=== PATIENT | female | born 1985 | race African-American/Black ===

== ENCOUNTER 2016-12-29 20:07 | Emergency (ER) | payer SELFPAY ==
[2016-12-29 20:58] LABS: Bilirubin Negative (Negative); Blood, Urine Negative (Negative); Glucose, Urine (Dipstick) Negative (Negative); Ketone, Urine Negative (Negative); Nitrite Positive (Negative); Protein, Urine (Dipstick) Negative (Neg-Trace)
[2016-12-29 21:03] LABS: Bacteria/HPF 4+ HPF (None Seen); Hyaline Casts/LPF 0-3 HYALINE CAST LPF (0-3 Hyaline); RBC/HPF 0-3 HPF (0-3); Squamous Epithelial 0-3 HPF (0-3)
== END 2016-12-29 21:49 | disposition home or self-care (01) ==
LOC: ERS 20:07
DX: N39.0 Urinary tract infection, site not specified (principal); H92.03 Otalgia, bilateral
CPT/HCPCS: 81003; 81015; 99283

== ENCOUNTER 2018-03-31 00:22 | Day surgery (SDC) | payer BC, SELFPAY ==
[2018-03-31 01:01] LABS: #Basophils 0.2 thou/uL (0.0-0.2); #Lymphocytes 2.8 thou/uL (1.20-3.40); #Monocytes 0.8 thou/uL (0.11-0.59); #Neutrophils 4.9 thou/uL (1.40-6.50); %Basophils 1.9 % (0.0-1.0); %Eosinophils 0.2 % (0.0-10.0); %Lymphocytes 31.8 % (21.0-51.0); %Monocytes 9.2 % (0.0-10.0); %Neutrophils 56.9 % (42.0-75.0); Hemoglobin 11.6 g/dL (12.0-16.0); Mean Corpuscular HGB CONC 33.6 g/dL (32.0-36.0); Mean Platelet Volume 7.7 fL (7.4-10.4); Platelet Count 342 thou/uL (130-400); RBC Distribution Width 14.4 % (11.5-14.5); Red Blood Cell (RBC) Count 3.86 mill/uL (4.20-5.40); White Blood Cell (WBC) Count 8.7 thou/uL (4.8-10.8)
[2018-03-31 01:17] LABS: ALT (SGPT) 16 U/L (8-55); AST (SGOT) 14 U/L (5-34); Albumin 3.9 g/dL (3.5-5.0); Alkaline Phosphatase 82 U/L (40-150); Anion Gap 11 mmol/L (10-20); BUN (Urea Nitrogen) 7 mg/dL (7.0-18.7); Bilirubin, Total 0.2 mg/dL (0.2-1.2); Calc. Creatinine Clearance 0 mL/min (70-130); Calcium 9.4 mg/dL (7.8-10.44); Carbon Dioxide 27 mmol/L (22-29); Chloride 101 mmol/L (98-107); Estimated GFR-MDRD Greater than 90; Globulin 4.2 g/dL (2.4-3.5); Glucose 95 mg/dL (70-105); Lipase 31 U/L (8-78); Potassium 3.7 mmol/L (3.5-5.1); Protein, Total 8.1 g/dL (6.0-8.3); Sodium 135 mmol/L (136-145)
[2018-03-31] MEDS ORDERED: Ondansetron ODT 4 MG TAB ONE (03:24)
[2018-03-31] MEDS ORDERED: Morphine 4 MG/ML VIAL ONE (03:58)
[2018-03-31] MEDS ORDERED: Ketorolac Tromethamine 30 MG/ML VIAL ONE (03:58)
[2018-03-31] MEDS ORDERED: Acetaminophen 500 MG TAB ONE (03:58)
[2018-03-31 04:39] LABS: Bilirubin Negative (Negative); Blood, Urine Negative (Negative); Clarity CLEAR (Clear); Glucose, Urine (Dipstick) Negative (Negative); Leukocyte Negative (Negative); Nitrite Negative (Negative); Protein, Urine (Dipstick) Negative (Neg-Trace); Specific Gravity, Urine 1.011 (1.002-1.036); Urobilinogen 0.2 mg/dL (0.2-1.0)
[2018-03-31 04:45] LABS: Pregnancy Test - Urine (BHCG) Negative (Negative); Pregu Control Background? CLEAR/WHITE (CLR/WHITE); Pregu Control Bar Appear? YES (CONTROL BAR); Specific Gravity 1.011 (1.002-1.036)
[2018-03-31] MEDS ORDERED: Piperacillin/Tazobactam 3.375 GM VIAL ONE (06:42)
[2018-03-31] MEDS ORDERED: Morphine 2 MG/ML SYRINGE ONE ×2 (07:50→12:03)
--- NOTE | 2018-03-31 08:27 | CT ---
PRELIMINARY REPORT/[facility]/EMERGENTY AFTER-HOURS PROCEDURE Addendum created by Gregory Rainey MD on 03/31/2018 6:40 AM Central Time ([place] & [place]) THIS REPORT CONTAINS FINDINGS THAT MAY BE CRITICAL TO PATIENT CARE. The findings were verbally commun icated via telephone conference with RE CHACKO at 6:40 AM CROP FARM HELPER on 03/31/2018. The findings were a cknowledged and understood. Initial Report created on 03/31/2018 6:33 AM Central Time ([place] & [place]) CT Abdomen and Pelvis With Contrast EXAM DATE/TIME: 03/31/2018 5:05 AM CLINICAL HISTORY: 33 years old, female; Pain; Abdominal pain; Generalized; Patient HX: Intermittent abd pain x 2 days n ow constant. No history of prior pain. Denies fevers. Denies n/v/d. TECHNIQUE: Axial computed tomography images of the abdomen and pelvis with intravenous contrast. Coronal reforma tted images were created and reviewed. COMPARISON: No relevant prior studies available. FINDINGS: Lower thorax: There is subpleural atelectasis of the dependent portions of the lungs. ABDOMEN: Liver: There are no focal liver lesions identified. Gallbladder and bile ducts: The gallbladder is normal. There is no evidence of biliary ductal dilatio n. Pancreas: The pancreas appears normal. No ductal dilatation. Spleen: The spleen is normal. Adrenals: The adrenal glands are normal. Kidneys and ureters: The kidneys appear normal. No hydronephrosis. Stomach and bowel: The stomach is normal. Appendix: There is dilatation of the appendix up to 9 mm with questionable periappendiceal inflammato ry stranding. PELVIS: Bladder: Unremarkable as visualized. Reproductive: There is fluid within the endometrial canal/lower uterine segment, nonspecific. ABDOMEN and PELVIS: Intraperitoneal space: Normal. No free air. No significant fluid collection. Bones/joints: No acute fracture. No dislocation. Soft tissues: Unremarkable. Vasculature: Normal. No abdominal aortic aneurysm. Lymph nodes: Normal. No enlarged lymph nodes. IMPRESSION: There is dilatation of the appendix up to 9 mm with questionable periappendiceal inflammatory strandi ng. Correlate for possible acute appendicitis. Thank you for allowing us to participate in the care of your patient. Dictated and Authenticated by: Gregory Rainey MD 03/31/2018 6:33 AM Central Time ([place] & [place]) FINAL EXAM CT ABDOMEN AND PELVIS WITH CONTRAST: FINDINGS: I agree with the findings and impression given in the preliminary report by LI. Findings are likely secondary to early acute appendicitis. POS: [facility]
--- NOTE | 2018-03-31 08:46 | HP ---
HISTORY OF PRESENT ILLNESS: Leyda Beavers is a 33-year-old black female presenting with a 36-hour history of lower close to midline right lower quadrant pain, nausea without vomiting, without fever, associated with anorexia, who presents to the emergency room with slightly elevated white count and a CAT scan confirmed a physical exam and historical evidence of appendicitis. ALLERGIES: NONE. SOCIAL HISTORY: Tobacco, none. Alcohol socially, rarely. MEDICATIONS: None routinely. PAST SURGICAL HISTORY: C-sections with bladder repair during the . PAST MEDICAL HISTORY: Noncontributory. REVIEW OF SYSTEMS: Ten-point noncontributory. FAMILY HISTORY: Noncontributory. PHYSICAL EXAMINATION: VITAL SIGNS: Blood pressure 129/72, heart rate 76, and respiratory rate 18. HEAD, EARS, EYES, NOSE, AND THROAT: Unremarkable. LUNGS: Clear to auscultation. HEART: Regular rate and rhythm without murmur or gallop. ABDOMEN: Soft. Tenderness in the right lower quadrant with guarding. EXTREMITIES: Unremarkable. No ankle edema. NEUROLOGICAL: Intact. No focal deficit. Sclerae are nonicteric. SKIN: Nonjaundiced. Skin, normal turgor. ASSESSMENT AND PLAN: Acute appendicitis. We recommend laparoscopic video appendectomy. Risks of infection, bleeding, visceral injury, open procedure were discussed. Questions answered. Job ID: [id number]
[2018-03-31] MEDS ORDERED: Scopolamine 1.5 mg/72 hour Patch ONE (10:07)
[2018-03-31] MEDS ORDERED: Piperacillin/Tazobactam 3.375 GM in Sodium Chloride 0.9% 100 ML IVPB ONE (12:30)
[2018-03-31] MEDS ORDERED: Bupivacaine HCl 0.5%/Epinephrine 1:200,000/PF 30 ml Vial ONE (12:53)
[2018-03-31] MEDS ORDERED: Midazolam HCl 2 mg/2 ml Vial ONE (12:59)
[2018-03-31] MEDS ORDERED: Fentanyl 100 MCG/2 ML VIAL ONE ×3 (12:59→15:44)
[2018-03-31] MEDS ORDERED: SUGAMMADEX SODIUM 200 MG/2 ML VIAL ONE (14:10)
[2018-03-31] MEDS ORDERED: Ondansetron PF 4 MG/2 ML Vial ONE (14:34)
[2018-03-31] MEDS ORDERED: Dexamethasone 20 MG/5 ML VIAL ONE (14:34)
[2018-03-31] MEDS ORDERED: Lidocaine 1% PF 5 ML VIAL ONE (14:34)
[2018-03-31] MEDS ORDERED: PROPOFOL 200 MG/20 ML VIAL ONE (14:34)
[2018-03-31] MEDS ORDERED: Glycopyrrolate 0.2 MG/ML 5 ML SYRINGE ONE (14:34)
[2018-03-31] MEDS ORDERED: HYDROcodone/Acetaminophen 5/325 mg Tablet ONE (17:29)
--- NOTE | 2018-03-31 20:42 | OP ---
DATE OF PROCEDURE: 03/31/2018 PREOPERATIVE DIAGNOSIS: Acute appendicitis. POSTOPERATIVE DIAGNOSIS: Acute appendicitis. PROCEDURE PERFORMED: Laparoscopic video appendectomy. ANESTHESIA: General, local with 0.5% Marcaine with epinephrine of 30 mL. DESCRIPTION OF PROCEDURE: The patient was taken to the operating room, where under general anesthesia, Wellington catheter was placed at the beginning of the procedure and removed at the end. Abdomen was clipped of hair, prepared with ChloraPrep, and draped in routine fashion. Local anesthetic was infiltrated in the skin and subcutaneous tissue about all port sites. An infraumbilical incision was made. Pneumoperitoneum to 15 mmHg was obtained with a Veress needle, replaced with a 5 port and the laparoscope was inserted. Right lateral subcostal incision was made and 5 port placed. Suprapubic incision was made through an old Pfannenstiel incision and under laparoscopic visualization directed to the patient's right and cephalad avoiding the uterus adherent to the anterior abdominal wall. Appendix identified. Mesoappendix was taken down with the LigaSure. The stump of the appendix divided with Endo-AURELIANO blue load stapler. Stapled cecal stump was secured and placed in Endobag, removed, submitted to Pathology. Good hemostasis ensured with cautery. Supraumbilical fascia was approximated with 0 Vicryl GraNee needle. All irrigant and pneumoperitoneum evacuated. All instruments were removed. All skin incisions were approximated with interrupted subdermal 4-0 Monocryl and [place] glue applied. Job ID: [id number]
== END 2018-03-31 19:59 | disposition home or self-care (01) ==
LOC: ERS 00:22
PROVIDERS: ATTEND Specialist
PROC: 0DTJ4ZZ Resection of Appendix, Percutaneous Endoscopic Approach (ICD-10-PCS; principal; 2018-03-31)
DX: K35.80 Unspecified acute appendicitis (principal)
CPT/HCPCS: 36415; 74177; 80053; 81003; 81025; 83690; 85025; 88304; 96374; J0131; J0670; J1100; J1885; J2001; J2250; J2270; J2405; J2543; J2704; J3010; J7050; Q0162

== ENCOUNTER 2018-11-13 21:52 | Emergency (ER) | payer BC ==
[2018-11-13 22:40] LABS: Bilirubin Negative (Negative); Blood, Urine Negative (Negative); Clarity Clear (Clear); Glucose, Urine (Dipstick) Normal (Negative); Leukocyte Negative Leu/uL (Negative); Nitrite Negative (Negative); Protein, Urine (Dipstick) Negative (Neg-Trace); Urobilinogen Normal mg/dL (Less than 2)
[2018-11-13 22:41] LABS: Pregnancy Test - Urine (BHCG) Negative (Negative); Pregu Control Background? CLEAR/WHITE (CLR/WHITE); Pregu Control Bar Appear? YES (CONTROL BAR); Specific Gravity 1.021 (1.002-1.036)
[2018-11-13 22:44] LABS: #Lymphocytes 2.8 thou/uL (1.20-3.40); #Monocytes 0.7 thou/uL (0.11-0.59); %Basophils 0.5 % (0.0-1.0); %Eosinophils 0.5 % (0.0-10.0); %Lymphocytes 36.7 % (21.0-51.0); %Monocytes 9.7 % (0.0-10.0); %Neutrophils 52.5 % (42.0-75.0); Hemoglobin 11.6 g/dL (12.0-16.0); Mean Corpuscular Hemoglobin 28.9 pg (27.0-31.0); Mean Corpuscular Volume 87.5 fL (78.0-98.0); Mean Platelet Volume 7.3 fL (7.4-10.4); Platelet Count 396 thou/uL (130-400); RBC Distribution Width 14.4 % (11.5-14.5); Red Blood Cell (RBC) Count 4.01 mill/uL (4.20-5.40); White Blood Cell (WBC) Count 7.6 thou/uL (4.8-10.8)
[2018-11-13 23:03] LABS: ALT (SGPT) 12 U/L (8-55); AST (SGOT) 13 U/L (5-34); Albumin 4.1 g/dL (3.5-5.0); Alkaline Phosphatase 82 U/L (40-150); Anion Gap 12 mmol/L (10-20); BUN (Urea Nitrogen) 7 mg/dL (7.0-18.7); Bilirubin, Total 0.2 mg/dL (0.2-1.2); Calc. Creatinine Clearance 0 mL/min (70-130); Calcium 9.5 mg/dL (7.8-10.44); Carbon Dioxide 28 mmol/L (22-29); Chloride 102 mmol/L (98-107); Estimated GFR-MDRD Greater than 90; Globulin 4.1 g/dL (2.4-3.5); Glucose 77 mg/dL (70-105); Potassium 3.2 mmol/L (3.5-5.1); Protein, Total 8.2 g/dL (6.0-8.3); Sodium 139 mmol/L (136-145)
[2018-11-14] MEDS ORDERED: Ketorolac Tromethamine 30 MG/ML VIAL ONE (00:32)
[2018-11-14] MEDS ORDERED: Metoclopramide HCl 10 MG/2 ML VIAL ONE (00:32)
== END 2018-11-14 01:34 | disposition home or self-care (01) ==
LOC: ERS 21:52
DX: R51 Headache (principal)
CPT/HCPCS: 36415; 80053; 81003; 81025; 85025; 96365; 96375; J1885; J2765

== ENCOUNTER 2020-04-27 09:21 | Day surgery (SDC) | payer BC ==
[~2020-04-27 09:21] MED LIST: Dexamethasone 20 MG/5 ML VIAL ONE; Ketorolac Tromethamine 30 MG/ML VIAL ONE; Lidocaine 1% PF 5 ML VIAL ONE; Metoclopramide HCl 10 MG/2 ML VIAL ONE; Ondansetron PF 4 MG/2 ML Vial ONE; PROPOFOL 200 MG/20 ML VIAL ONE; Rocuronium Bromide 10 MG/ML (10ML VIAL) ONE
[2020-04-27] MEDS ORDERED: Morphine 4 MG/ML VIAL ONE ×2 (09:30→11:23)
[2020-04-27] MEDS ORDERED: Ondansetron PF 4 MG/2 ML Vial ONE (09:30)
[2020-04-27 09:42] LABS: #Lymphocytes 1.3 thou/uL (1.20-3.40); #Monocytes 0.5 thou/uL (0.11-0.59); %Basophils 0.2 % (0.0-1.0); %Eosinophils 0.1 % (0.0-10.0); %Lymphocytes 19.2 % (21.0-51.0); %Monocytes 7.9 % (0.0-10.0); %Neutrophils 72.7 % (42.0-75.0); Hemoglobin 10.6 g/dL (12.0-16.0); Mean Corpuscular HGB CONC 31.5 g/dL (32.0-36.0); Mean Corpuscular Hemoglobin 25.7 pg (27.0-31.0); Mean Corpuscular Volume 81.6 fL (78.0-98.0); Mean Platelet Volume 7.9 fL (7.4-10.4); Platelet Count 354 thou/uL (130-400); RBC Distribution Width 15.6 % (11.5-14.5); Red Blood Cell (RBC) Count 4.14 mill/uL (4.20-5.40); White Blood Cell (WBC) Count 6.8 thou/uL (4.8-10.8)
[2020-04-27 09:50] LABS: Bilirubin Negative (Negative); Blood, Urine Negative (Negative); Clarity Turbid (Clear); Glucose, Urine (Dipstick) Normal (Negative); Ketone, Urine Negative (Negative); Leukocyte Negative Leu/uL (Negative); Nitrite Negative (Negative); Protein, Urine (Dipstick) 20 mg/dL (Neg-Trace); Specific Gravity, Urine 1.027 (1.002-1.036); Urobilinogen Normal mg/dL (Less than 2); pH, Urine 5.5 (5.0-9.0)
[2020-04-27 09:58] LABS: ALT (SGPT) 13 U/L (8-55); AST (SGOT) 15 U/L (5-34); Albumin 3.9 g/dL (3.5-5.0); Alkaline Phosphatase 80 U/L (40-110); Anion Gap 9 mmol/L (10-20); BUN (Urea Nitrogen) 5 mg/dL (7.0-18.7); Bilirubin, Total Less than 0.2 mg/dL (0.2-1.2); Calc. Creatinine Clearance 0 mL/min (70-130); Calcium 8.9 mg/dL (7.8-10.44); Carbon Dioxide 27 mmol/L (22-29); Chloride 104 mmol/L (98-107); Globulin 4.7 g/dL (2.4-3.5); Glucose 117 mg/dL (70-105); Lipase 16 U/L (8-78); Potassium 3.8 mmol/L (3.5-5.1); Protein, Total 8.6 g/dL (6.0-8.3); Sodium 136 mmol/L (136-145)
[2020-04-27 10:21] LABS: Pregnancy Test - Urine (BHCG) Negative (Negative); Pregu Control Background? CLEAR/WHITE (CLR/WHITE); Pregu Control Bar Appear? YES (CONTROL BAR); Specific Gravity 1.027 (1.002-1.036)
--- NOTE | 2020-04-27 10:47 | ULT ---
RIGHT UPPER QUADRANT ULTRASOUND: Date: 04/27/2020 COMPARISON: None. HISTORY: Right upper quadrant pain. TECHNIQUE: Multiplanar Villatoro scale sonographic imaging of the right upper quadrant provided. FINDINGS: Imaged portions of the pancreas appear unremarkable. The pancreatic tail is obscured by bowel gas. No focal liver lesion or intrahepatic biliary dilatation is seen. The common bile duct measures 5.0 mm, within normal limits. There is no gallbladder wall thickening or pericholecystic fluid. The juke box mechanic reports a negative Beach's sign. There are numerous echogenic foci with shadowing within the gallbladder consistent wit h cholelithiasis. The right kidney measures 9.6 cm in craniocaudal dimension and demonstrates no discrete stone, hydron ephrosis, or mass lesion. IMPRESSION: Cholelithiasis. No sonographic evidence of acute cholecystitis or biliary dilatation. If further imag ing assessment is clinically warranted, hepatobiliary scan may be beneficial. POS: [facility]
[2020-04-27] MEDS ORDERED: Meperidine HCl/PF 25 MG/ML VIAL ONE (12:07)
[2020-04-27] MEDS ORDERED: Famotidine/PF 20 mg/2ml Vial ONE (12:07)
[2020-04-27] MEDS ORDERED: Fentanyl 100 MCG/2 ML VIAL ONE ×3 (12:07→17:18)
--- NOTE | 2020-04-27 12:20 | HP ---
REQUESTING PHYSICIAN: Dr. Masterson. CONSULTATIONS: None. HISTORY OF PRESENT ILLNESS: The patient is a 35-year-old woman, who presented to the emergency department this morning. She reports that last night she had fried chicken and at 2 a.m. awaken to severe her right upper quadrant pain. She denied radiation. She had nausea without vomiting and has had no diarrhea. She denies any respiratory symptoms. She denies fevers, chills, or night sweats. She brought to the emergency department, where she underwent evaluation and examination, and was found to have acute cholecystitis, at which time, we were asked to evaluate the patient for admission and surgical consultations. ALLERGIES: NONE. CURRENT MEDICATIONS: None. PAST SURGICAL HISTORY: Appendectomy, bilateral tubal ligation, bladder repair, x3. FAMILY MEDICAL HISTORY: Diabetes on the mother's side. Maternal grandmother and aunt had brain and throat cancer. SOCIAL HISTORY: The patient denies drug, tobacco, or alcohol use. She works for hospice service and passes medications. REVIEW OF SYSTEMS: A 10-point review of systems is negative as otherwise stated. PHYSICAL EXAMINATION: VITAL SIGNS: Blood pressure 111/63, heart rate 108, respirations 18, oxygen saturation 97% on room air, and temperature is 98.9. GENERAL: The patient is resting comfortably in bed. She has just been medicated. She reports that she feels much better. She has no nausea at this time. She is awake, alert, conversant, appropriate. HEENT: Unremarkable. RESPIRATIONS: Nonlabored. Clear to auscultation bilaterally. HEART: Regular rate and rhythm. ABDOMEN: Soft with minimal tenderness to the right upper quadrant. EXTREMITIES: Neurovascularly intact x4. BACK: Atraumatic and nontender with no CVA tenderness. LABORATORY FINDINGS: WBC 6.8, hemoglobin 10.6, hematocrit 33.8, platelets 354. Sodium 136, potassium 3.8, chloride 104, CO2 of 27, BUN 5, creatinine 0.73, glucose 117, total bilirubin less than 0.2, AST 15, ALT 13, alkaline phosphatase 80, lipase 16. Urinalysis is unremarkable. Urine test is negative. RADIOGRAPHIC RESULTS: Abdominal ultrasound shows cholelithiasis. No sonographic evidence of acute cholecystitis or biliary dilatation. ASSESSMENT: 1. Acute abdominal pain. 2. Cholelithiasis with suspicion of cholecystitis. PLAN: Plan will be to admit the patient under observation. We will take her to the operating room today for her to undergo a laparoscopic cholecystectomy. Postoperatively, we will resume her diet, do pain control, pulmonary toilet, gastritis and mechanical VTE prophylaxis, and depending on timing, possibly discharge home today or tomorrow. If the patient remains overnight, we will repeat her labs in the morning also. The patient was evaluated, examined, and consented for this procedure by Dr. Singh in the emergency department. The patient was agreeable to this and all of her questions were answered at that time also. Job ID: [id number]
[2020-04-27] MEDS ORDERED: Bupivacaine 0.25% HCL 30 ML VIAL ONE (12:47)
[2020-04-27] MEDS ORDERED: EPINEPHrine 1 MG/ML AMP ONE (12:47)
[2020-04-27] MEDS ORDERED: Ketorolac Tromethamine 30 MG/ML VIAL IVP SCH (13:00)
[2020-04-27] MEDS ORDERED: hydrALAZINE 20 MG/ML VIAL SLOW IVP PRN (13:03)
[2020-04-27] MEDS ORDERED: Dextrose 5% in Water 1,000 ML IV PRN (13:03)
[2020-04-27] MEDS ORDERED: Calcium Carbonate 500 MG ChewTAB PO PRN (13:03)
[2020-04-27] MEDS ORDERED: Lactated Ringer's 1,000 ML IV SCH (13:03)
[2020-04-27] MEDS ORDERED: Ondansetron PF 4 MG/2 ML Vial IVP PRN (13:03)
[2020-04-27] MEDS ORDERED: Mag-Al 1200 mg/1200 mg/30 ML UDCUP PO PRN (13:03)
[2020-04-27] MEDS ORDERED: Promethazine HCl 25 MG/ML VIAL IM PRN (13:03)
[2020-04-27] MEDS ORDERED: Acetaminophen 325 MG TAB PO PRN (13:03)
[2020-04-27] MEDS ORDERED: Dextrose 50% Abboject 50 ML SYRINGE SLOW IVP PRN (13:03)
[2020-04-27 13:06] LABS: SARS-CoV-2 NAA Rapid Test Not Detected (NotDetected)
[2020-04-27] MEDS ORDERED: Midazolam HCl 2 mg/2 ml Vial ONE (14:09)
[2020-04-27] MEDS ORDERED: SUGAMMADEX SODIUM 200 MG/2 ML VIAL ONE (14:17)
[2020-04-27] MEDS ORDERED: Piperacillin/Tazobactam 3.375 GM VIAL ONE (14:18)
[2020-04-27] MEDS ORDERED: Sodium Chloride 0.9% 100 ML ONE (14:18)
--- NOTE | 2020-04-27 17:31 | OP ---
DATE OF PROCEDURE: 04/27/2020 PREOPERATIVE DIAGNOSIS: Acute cholecystitis with cholelithiasis. POSTOPERATIVE DIAGNOSES: 1. Acute cholecystitis with cholelithiasis. 2. Intra-abdominal adhesions. OPERATIONS PERFORMED: 1. Laparoscopic cholecystectomy. 2. Laparoscopic adhesiolysis. ANESTHESIA: General endotracheal. ESTIMATED BLOOD LOSS: 5 mL. FLUIDS GIVEN: 1700 mL of crystalloids. COUNTS: Sponge and instrument counts were verified as correct x2. COMPLICATIONS: None apparent at the time of operation. INDICATIONS FOR OPERATION: A 35-year-old woman presented with postprandial epigastric and right upper quadrant abdominal pain. Clinical and radiographic examination were consistent with acute cholecystitis with cholelithiasis, for which the patient was brought to the operating room for cholecystectomy. Findings are consistent with multiple intra-abdominal adhesions as well as distended gallbladder with gallbladder hydrops. DESCRIPTION OF PROCEDURE: Informed consent was obtained from the patient who was brought to the operating room and placed in supine position. Following general anesthesia, orogastric tube was inserted and placed to wall suction. The abdomen was sterilely prepped and draped in usual fashion. The skin below the umbilicus was infiltrated with 0.25% Marcaine with epinephrine. A small curvilinear infraumbilical incision was made using 11 scalpel. Umbilical stalk was grasped with Silvia and elevated. Veress needle inserted through the incision and placed in the peritoneal cavity, through which the abdomen was insufflated with 3 L of CO2 gas. Intra-abdominal pressure noted at 2 mmHg. Following abdominal insufflation, Veress needle was removed. A 5 mm trocar introduced using a Visiport under laparoscopy. Laparoscopy confirmed proper placement of the port, no injuries to underlying structures. Additional laparoscopy revealed multiple intra-abdominal adhesions involving omentum and anterior abdominal wall. Under direct laparoscopy, a 12-mm epigastric and two 5-mm right lateral subcostal ports were placed. Note that prior to placement of the subcostal ports, I introduced the LigaSure device through the epigastric port site, using this to take down omental adhesions to clear the path for placement of the right subcostal ports. The patient was then placed in a reverse Trendelenburg position and rotated to her left. I then used a LigaSure device to complete adhesiolysis of the omentum from the remainder of the abdominal wall. I introduced Prestige grasper through the right lateral subcostal port, attempted to grasp the markedly distended gallbladder, which was quite taut. We decided to decompress the gallbladder to achieve this. I used the Endo suction catheter with cautery to perform a cholecystotomy at the dome of the gallbladder, evacuating excess white bile. Once the gallbladder was decompressed, the PhysioSonicsige grasper was then used to grasp the fundus of the gallbladder, which was elevated cephalad. Omental adhesions were bluntly taken down from remainder of the gallbladder. I opened the peritoneum off the gallbladder infundibulum using a [place] dissector. The cystic duct and artery were then individually dissected free from surrounding structures. Critical view of the triangle was noted. The cystic artery was divided between clips, applying 2 clips proximally and 1 clip at the junction of the cystic artery and gallbladder. Cystic duct was also divided between clips in a similar fashion. The gallbladder itself was removed from the liver bed using cautery with good hemostasis and delivered the abdominal cavity using EndoCatch. Finding no other pathology, laparoscopy was terminated. The fascia of the epigastric port was closed using 0 Vicryl suture and Endoclosure device under laparoscopy. The abdomen was desufflated. All ports and instruments were removed and accounted for. Skin incisions were closed using 4-0 Monocryl suture in subcuticular fashion. Dermabond was applied over incisional closure. The patient tolerated this operation without any apparent complication and was returned to recovery room in satisfactory condition. Job ID: [id number]
[2020-04-27] MEDS ORDERED: Piperacillin/Tazobactam 3.375 GM in Sodium Chloride 0.9% 100 ML IVPB SCH (18:00)
[2020-04-27] MEDS ORDERED: HYDROcodone/Acetaminophen 5/325 mg Tablet ONE (18:03)
[2020-04-27] MEDS ORDERED: Famotidine/PF 20 mg/2ml Vial SLOW IVP SCH (21:00)
[2020-04-27] MEDS ORDERED: Famotidine 20 MG TAB PO SCH (21:00)
== END 2020-04-27 18:23 | disposition home or self-care (01) ==
LOC: ERS 09:21 → SDC/OP 13:47
PROVIDERS: ATTEND Surgery
PROC: 0FT44ZZ Resection of Gallbladder, Percutaneous Endoscopic Approach (ICD-10-PCS; principal; 2020-04-27)
DX: K80.12 Calculus of gallbladder with acute and chronic cholecystitis without obstruction (principal); K82.1 Hydrops of gallbladder; K66.0 Peritoneal adhesions (postprocedural) (postinfection); Z20.822 Contact with and (suspected) exposure to COVID-19
CPT/HCPCS: 76705; 80053; 81003; 81025; 83690; 85025; 88304; 93005; 96374; 96375; 96376; J0171; J1100; J1885; J2175; J2250; J2270; J2405; J2543; J2704; J2765; J3010; J3490; S0020; S0028; U0002

== ENCOUNTER 2020-11-13 21:50 | Emergency (ER) | payer BC ==
[2020-11-13 22:16] LABS: Bilirubin Negative (Negative); Blood, Urine Trace (Negative); Clarity Turbid (Clear); Glucose, Urine (Dipstick) Normal (Negative); Ketone, Urine Negative (Negative); Leukocyte 250 Leu/uL (Negative); Mucous/LPF Rare LPF (<2+); Nitrite Negative (Negative); Protein, Urine (Dipstick) Negative (Neg-Trace); RBC/HPF 0-3 HPF (0-3); Renal Epithelial 0-3 HPF (None Seen); Specific Gravity, Urine 1.011 (1.002-1.036); Urobilinogen Normal mg/dL (Less than 2); WBC/HPF 21-50 HPF (0-3)
[2020-11-13] MEDS ORDERED: Morphine 4 MG/ML VIAL ONE (22:19)
[2020-11-13] MEDS ORDERED: Ketorolac Tromethamine 30 MG/ML VIAL ONE (22:19)
[2020-11-13] MEDS ORDERED: cefTRIAXone\\ROCEPHIN 1 GM VIAL ONE (22:19)
[2020-11-13] MEDS ORDERED: Ondansetron PF 4 MG/2 ML Vial ONE (22:19)
[2020-11-13 22:24] LABS: Bacteria/HPF 3+ HPF (None Seen)
[2020-11-13 22:30] LABS: #Basophils 0.1 thou/uL (0.0-0.2); #Eosinphils 0.1 thou/uL (0.0-0.7); #Lymphocytes 3.7 thou/uL (1.20-3.40); #Monocytes 0.9 thou/uL (0.11-0.59); #Neutrophils 7.2 thou/uL (1.40-6.50); %Basophils 0.9 % (0.0-1.0); %Lymphocytes 30.7 % (21.0-51.0); %Monocytes 7.2 % (0.0-10.0); %Neutrophils 60.2 % (42.0-75.0); Hemoglobin 11.5 g/dL (12.0-16.0); Mean Corpuscular HGB CONC 31.9 g/dL (32.0-36.0); Mean Corpuscular Hemoglobin 27.6 pg (27.0-31.0); Mean Corpuscular Volume 86.3 fL (78.0-98.0); Mean Platelet Volume 7.7 fL (7.4-10.4); Platelet Count 377 thou/uL (130-400); RBC Distribution Width 17.1 % (11.5-14.5); Red Blood Cell (RBC) Count 4.18 mill/uL (4.20-5.40); White Blood Cell (WBC) Count 11.9 thou/uL (4.8-10.8)
[2020-11-13 22:58] LABS: ALT (SGPT) 15 U/L (8-55); AST (SGOT) 14 U/L (5-34); Alkaline Phosphatase 94 U/L (40-110); Anion Gap 13 mmol/L (10-20); BUN (Urea Nitrogen) 6 mg/dL (7.0-18.7); Bilirubin, Total 0.2 mg/dL (0.2-1.2); Calc. Creatinine Clearance 0 mL/min (70-130); Calcium 9.7 mg/dL (7.8-10.44); Carbon Dioxide 25 mmol/L (22-29); Chloride 100 mmol/L (98-107); Globulin 4.7 g/dL (2.4-3.5); Glucose 97 mg/dL (70-105); Lipase 22 U/L (8-78); Potassium 3.6 mmol/L (3.5-5.1); Protein, Total 8.7 g/dL (6.0-8.3); Sodium 134 mmol/L (136-145)
== END 2020-11-13 23:47 | disposition home or self-care (01) ==
LOC: ERS 21:50
DX: N12 Tubulo-interstitial nephritis, not specified as acute or chronic (principal)
CPT/HCPCS: 36415; 80053; 81003; 81015; 83605; 83690; 85025; 87040; 87086; 96365; 96375; J0696; J1885; J2270; J2405

== ENCOUNTER 2021-12-01 08:42 | Emergency (ER) | payer OTHER, BC ==
[2021-12-01] MEDS ORDERED: Ketorolac Tromethamine 30 MG/ML VIAL ONE (10:15)
== END 2021-12-01 10:35 | disposition home or self-care (01) ==
LOC: ERS 08:42
DX: S39.012A Strain of muscle, fascia and tendon of lower back, initial encounter (principal); V43.52XA Car driver injured in collision with other type car in traffic accident, initial encounter
CPT/HCPCS: 96372; 99283; J1885

== ENCOUNTER 2024-10-17 08:58 | Emergency (ER) | payer BC, OTHER ==
[2024-10-17] MEDS ORDERED: Ibuprofen 200 MG TAB ONE (10:12)
== END 2024-10-17 12:07 | disposition home or self-care (01) ==
LOC: ERS 08:58
DX: S82.62XA Displaced fracture of lateral malleolus of left fibula, initial encounter for closed fracture (principal); F90.9 Attention-deficit hyperactivity disorder, unspecified type; W19.XXXA Unspecified fall, initial encounter
CPT/HCPCS: 99283